=== PATIENT | male | born 1990 | race Two or more races ===

== ENCOUNTER 2025-10-07 00:55 | Emergency (ER) | payer MEDICAID, SELFPAY ==
[2025-10-07 00:58] VITALS: BMI 20.1
[2025-10-07 01:30] VITALS: BP 137/76; PULSE 79; RESP 20; TEMP 37.2; O2SAT 98
--- NOTE | 2025-10-07 01:32 | PD.EDURI ---
Upper Respiratory Inf. RME/HPI General Chief Complaint: Abdominal Pain Stated Complaint: NAUSA VOMITING AND BODY ACHES Time Seen by Provider: 10/07/25 01:40 Arrival date/time: 10/07/25 00:55 RME / HPI RME / HPI Narrative: See [facility] for Dr. Lambert's HPI Documentation. Related Data Previous Rx's ?Medication ?Instructions ?Recorded famotidine 40 mg tablet 40 mg PO .bedtime #30 tabs 10/07/25 omeprazole 40 mg capsule,delayed 40 mg PO QDAY #30 caps 10/07/25 release ondansetron 4 mg disintegrating 4 mg PO TID PRN nausea and 10/07/25 tablet vomiting 30 days #10 tabs Allergies Allergy/AdvReac Type Severity Reaction Status Date / Time No Known Allergies Unknown Uncoded 05/24/17 21:56 Review of Systems Review of Systems Systems Reviewed: All systems reviewed, normal except as documented Past Medical History Social History SMOKING STATUS: Never smoker ED Exam Narrative Physical exam: See [facility] for Dr. Lambert's Physical Exam Documentation. Course Quality Measures none Orders Category Date Time Status US gall bladder Stat Exams 10/07/25 01:42 Completed Amylase Stat Lab 10/07/25 01:56 Completed Bilirubin,Direct Stat Lab 10/07/25 01:56 Completed CBC Stat Lab 10/07/25 01:56 Completed CMP [Comprehensive Metabolic Panel] Stat Lab 10/07/25 01:56 Completed COVID-19 Antigen (In-House) Stat Lab 10/07/25 01:45 Completed Influenza A & B Rapid Panel Stat Lab 10/07/25 01:45 Completed Lipase Stat Lab 10/07/25 01:56 Completed Magnesium Stat Lab 10/07/25 01:56 Completed Famotidine [Pepcid] Med 10/07/25 01:40 Discontinued 40 mg PO X1 ONE Ondansetron Odt [Zofran Odt] Med 10/07/25 01:40 Discontinued 4 mg PO X1 ONE Pantoprazole [Protonix] Med 10/07/25 01:40 Discontinued 40 mg PO X1 ONE Vital Signs Vital signs: Vital Signs Temperature 98.9 F 10/07/25 01:30 Pulse Rate 79 10/07/25 01:30 Respiratory Rate 20 10/07/25 01:30 Blood Pressure 137/76 H 10/07/25 01:30 Pulse Oximetry (%) 98 10/07/25 01:30 Oxygen Delivery Method Room Air 10/07/25 01:30 Upper Respiratory Infection MDM Narrative MDM Narrative:: This section includes all my notes and documentations, including HPI, PE, and ED course. Timoteo Lambert MD HPI: 34 y/o male presents with several days of upper abdominal pain and nausea. No fever or chills. No other complaints. ROS: All negative except as documented in HPI. Physical Exam: General: Alert and oriented. No acute distress when remaining still. Eyes: Conjunctivae and lids clear. ENT: No nasal congestion. Neck: Supple. Heart: RRR. Lungs: No respiratory distress. Good air movement. No rhonchi, wheezing, rales. Abdomen: Soft with epigastric tenderness. Normal bowel sounds. No distension. No rebound or guarding. Back: No CVA tenderness. Skin: Warm and dry. Neuro: Alert and oriented X 3. I reviewed all diagnostic test results: My review of the Gall Bladder US report is NAD. Blood tests unremarkable. Covid/Influenza are negative. At this point, diagnoses include: Stomach Ulcer Treatment here included: Pepcid 40 mg Zofran 4 mg Protonix 40 mg He felt much better. Recommended more outpatient workup. Based on my best medical judgment, made decision no further evaluation or treatment indicated at this time. Patient understands and agrees to the discharge instructions customized and printed, see below. Discharge instructions from Dr. Lambert: ?After evaluation, your symptoms are due to stomach ulcer (see attached handout).? There is no emergency such as appendicitis needing emergent surgery. ?To help heal the ulcer, take Omeprazole 40 mg every morning and Famotidine 40 mg at bedtime for a week then as needed. ?Zofran for nausea/vomiting.? Clear liquid diet for 24 hours.? Then slowly advance diet as tolerated. ?Avoid food and beverages that can trigger and worsen ulcers.? See attached handout. ?See a private doctor on 10/10/2025. To make sure there is no serious intra-abdominal condition, ask for help with more investigation not available here in the ER.? Such as EGD or scoping the stomach, colonoscopy or scoping the colon, and referral to see alternative dispute resolution mediator. ?Seek immediate medical care with worsening or with any concerns. Timoteo Lambert MD Patient data External records reviewed:: [facility] previous records (No prior ED records available for review) Clinical information provided by:: patient Social determinants that could affect healthcare access:: none Patient has the following chronic illnesses:: None reported How is presenting disease/condition affected by chronic disease/condition?: no chronic disease Evaluation data The following diagnostics were reviewed and interpreted by me:: lab results and radiology exam(s) Lab and/or radiology exams considered but not ordered:: None Interpretation Summary: I reviewed all diagnostic test results: My review of the Gall Bladder US report is NAD. Blood tests unremarkable. Covid/Influenza are negative. Medications / Prescriptions Medications or Prescriptions considered but not ordered:: None Medication administrations:: Medication Administration History Discontinued Medications Famotidine (Famotidine 20 Mg Tablet) 40 mg PO X1 ONE Stop: 10/07/25 01:41 Last Admin: 10/07/25 01:53 Dose: 40 mg Documented By: YULY Ondansetron HCl (Ondansetron Odt 4 Mg Tabrap) 4 mg PO X1 ONE; Protocol Stop: 10/07/25 01:41 Last Admin: 10/07/25 01:54 Dose: 4 mg Documented By: YULY Pantoprazole Sodium (Pantoprazole 40 Mg Tablet) 40 mg PO X1 ONE Stop: 10/07/25 01:41 Last Admin: 10/07/25 01:54 Dose: 40 mg Documented By: YULY Pepcid 40 mg Zofran 4 mg Protonix 40 mg Consultations Consultation(s) initiated? (list below): No Diagnosis Upper Respiratory Differential Diagnosis: other (Biliary colic, gastritis, PUD, GERD) Most likely diagnosis given after review of the tests above:: Stomach Ulcer Admission Indicated Admission indicated?: not indicated Explain why admission is indicated or not indicated:: With significant improvement and no condition needing emergent intervention, there was no indication for admission. Admission Request Was there a request for admission?: No Disposition Plan Disposition Plan: Discharge Discharge Attestation Discharge Attestation: The patient and all family members were given an opportunity to ask questions and understood the discharge instructions. Discharge instructions specifically effects, indications for sooner follow up or return to the emergency department, and the expected course of current diagnosis. Patient condition: Stable Discharge Plan Plan Patient Disposition: HOME (Self Care) Prescriptions/Referrals Prescriptions/Med Rec: New famotidine 40 mg tablet 40 mg PO .bedtime Qty: 30 0RF omeprazole 40 mg capsule,delayed release(DR/EC) 40 mg PO QDAY Qty: 30 0RF ondansetron 4 mg tablet,disintegrating 4 mg PO TID PRN (Reason: nausea and vomiting) 30 Days Qty: 10 0RF Problem List Clinical Impression: Stomach ulcer Patient/Caregiver Discharge Instructions Discharge Activity: activity as tolerated Education Materials: ED PEPTIC ULCER vs GASTRITIS Additional Instructions: Discharge instructions from Dr. Lambert: ?After evaluation, your symptoms are due to stomach ulcer (see attached handout).? There is no emergency such as appendicitis needing emergent surgery. ?To help heal the ulcer, take Omeprazole 40 mg every morning and Famotidine 40 mg at bedtime for a week then as needed. ?Zofran for nausea/vomiting.? Clear liquid diet for 24 hours.? Then slowly advance diet as tolerated. ?Avoid food and beverages that can trigger and worsen ulcers.? See attached handout. ?See a private doctor on 10/10/2025. To make sure there is no serious intra-abdominal condition, ask for help with more investigation not available here in the ER.? Such as EGD or scoping the stomach, colonoscopy or scoping the colon, and referral to see alternative dispute resolution mediator. ?Seek immediate medical care with worsening or with any concerns. Print Language: [place] Stand Alone Forms: [employer] Award Info., Patient Portal Info Letter
--- NOTE | 2025-10-07 01:42 | XR_ITS ---
Examination: Abdomen sonogram, Limited Date and time of exam: September 29, 2025, 0310 hours INDICATIONS: Right upper abdominal pain extending to the back beginning 2 days ago Technique: Real-time cotton scale transabdominal sonographic images of the upper abdomen obtained. Findings: Normal gallbladder Normal common bile duct 0.2 cm Pancreatic head 2.7 cm Liver 13.2 cm smooth contour No focal liver lesions Patent IVC Normal hepatopetal portal venous flow IMPRESSION: Normal gallbladder
[2025-10-07] MEDS: FAMOTIDINE 20 MG TABLET 40 MG PO (01:53)
[2025-10-07] MEDS: PANTOPRAZOLE 40 MG TABLET PO (01:54)
[2025-10-07] MEDS: ONDANSETRON ODT 4 MG TABRAP PO (01:54)
[2025-10-07 02:15] LABS: Basophils # (Auto) 0.0 Thou/mm3 (0.0-0.2); Basophils % (Auto) 0 % (0-2.5); Eosinophils # (Auto) 0.1 Thou/mm3 (0.0-0.5); Eosinophils % (Auto) 0 % (0-10); Hematocrit 45.3 % (41.0-53.0); Hemoglobin 15.8 g/dL (13.5-16.0); Immature Granulocytes Auto 0.05 Thou/mm3 (0.00-0.00); Lymphocytes # (Auto) 2.3 Thou/mm3 (1.0-4.8); Lymphocytes % (Auto) 19 % (10-50); Mean Corpuscular HGB Conc 34.9 g/dl (31.0-37.0); Mean Corpuscular Hemoglobin 29.8 pg (25.0-35.0); Mean Corpuscular Volume 86 fL (80-100); Monocytes # (Auto) 0.9 Thou/mm3 (0.0-0.8); Monocytes % (Auto) 8 % (0-12); Neutrophils # (Auto) 8.9 Thou/mm3 (1.8-7.7); Neutrophils % (Auto) 73 % (37-80); Nucleated Red Blood Cell # 0.00 Thou/mm3 (0.00-0.00); Nucleated Red Blood Cell % 0 /100 WBC (0); Platelet Count 352 Thou/mm3 (140-440); RDW Standard Deviation 39.9 fL (35.1-43.9); Red Blood Count 5.30 Miln/mm3 (4.50-5.90); White Blood Count 12.3 Thou/mm3 (3.8-10.6)
[2025-10-07 02:35] LABS: COVID-19 Antigen (In-House) Negative (Negative); Influenza A Ag Negative; Influenza B Ag Negative
[2025-10-07 02:39] LABS: Alanine Aminotransferase 13 U/L (10-49); Albumin, Serum 5.4 gm/dL (3.5-5.0); Albumin/Globulin Ratio 1.9 (1.2-2.2); Alkaline Phosphatase 80 U/L (46-116); Amylase 103 U/L (30-118); Anion Gap 11 (7-16); Aspartate Amino Transferase 20 U/L (0-34); BUN/Creatinine Ratio 15 Ratio (12-20); Bilirubin,Direct 0.1 mg/dL (0.0-0.3); Bilirubin,Total 0.5 mg/dL (0.3-1.2); Blood Urea Nitrogen 20 mg/dL (9-23); Calcium 9.8 mg/dL (8.3-10.6); Calcium (Corrected) 9.8 mg/dL (8.5-10.1); Carbon Dioxide 29.1 mMol/L (20.0-31.0); Chloride 100 mMol/L (98-107); Creatinine (Component) 1.3 mg/dL (0.6-1.3); Estimated Creatinine Clearance 65.4 mL/min (>60); Globulin 2.9 gm/dL (2.3-3.5); Glucose 126 mg/dL (74-106); Lipase 28 U/L (12-53); Magnesium 2.0 mg/dL (1.6-2.6); Osmolality,Calculated 284 (275-295); Potassium 3.8 mMol/L (3.4-5.1); Sodium 140 mMol/L (136-145); Total Protein 8.3 gm/dL (5.7-8.2); eGFR > 60 See Note
[2025-10-07 04:10] VITALS: BP 119/81; PULSE 76; RESP 17; TEMP 36.7; O2SAT 98
--- NOTE | 2025-10-07 05:17 | PRELIM_ITS ---
Gallbladder ultrasound with Doppler and wave Doppler spectral analysis. October 07, 2025 0310 hours Clinical history: RUQ tenderness Comparison: None available at the time of this report. Findings: The visualized liver is normal in echogenicity without mass or ductal dilatation. No gallbladder calculus, wall thickening or pericholecystic fluid is identified. The common duct is normal in caliber at 1.5 mm. No free fluid is demonstrated on the submitted images. The portal vein is patent with hepatopetal flow and normal without flow spectral analysis. Bagley sign is not available at the time of this report. Impression: Unremarkable gallbladder sonogram. No evidence of acute cholecystitis. Report Electronically Signed By: Yasmani Hoskins 10/07/2025 5:16:41 AM [EST]
== END 2025-10-07 04:16 | disposition home or self-care (01) ==
PROVIDERS: Emergency Provider Emergency Medicine
DX: K25.9 Gastric ulcer, unspecified as acute or chronic, without hemorrhage or perforation (principal); R10.11 Right upper quadrant pain
CPT/HCPCS: 36415; 76705; 80053; 82150; 82248; 83690; 83735; 85025; 87502; 87811; 99283; Q0162; A9270